=== PATIENT | male | born 1970 | race Caucasian/White ===

== ENCOUNTER 2016-09-04 17:05 | Emergency (ER) | payer OTHER ==
[~2016-09-04] VITALS: Ht 172.7 cm; Wt 81.6 kg
[2016-09-04] MEDS ORDERED: BRINTELLIX20 M1 PO (18:00)
[2016-09-04] MEDS ORDERED: LOVAZA1 G1 PO (18:00)
[2016-09-04] MEDS ORDERED: MULTI-DAY VITA1 EACH PO (18:01)
[2016-09-04] MEDS ORDERED: MECLIZINE HCL25 MG PO (18:02)
[2016-09-04] MEDS ORDERED: AUGMENTIN 875-1 EACH PO (18:02)
--- NOTE | 2016-09-04 18:03 | ED EAR COMPLAINT ---
History of Present Illness General Chief Complaint: Ear Complaints Stated Complaint: LOST HEARING IN R EAR 48HRS AGO PER PT Source: patient Exam Limitations: no limitations Vital Signs & Intake/Output Vital Signs & Intake/Output Vital Signs Date Time Temp Pulse Resp B/P Pulse O2 O2 Flow FiO2 Ox Delivery Rate 09/04 1731 97.9 80 18 129/84 98 Room Air ED Intake and Output 09/05 0000 09/04 1200 Intake Total Output Total Balance Patient 180 lb Weight Allergies Coded Allergies: No Known Allergies (09/04/16) Reconcile Medications Amoxicillin/Potassium Clav (Augmentin 875-125 Tablet) 875 MG-125 MG TABLET 1 TAB PO BID OTITIS MEDIA Meclizine HCl 25 MG TABLET 1 TAB PO TIDPRN OTITIS MEDIA/HEARING LOSS Multivitamin (Multi-Day Vitamins) 1 EACH TABLET 1 TAB PO DAILY SUPPLEMENT ( Reported) [place]-3 Acid Ethyl Esters (Lovaza) 1 GRAM CAPSULE 1 CAP PO BID CHOLESTEROL ( Reported) Vortioxetine Hydrobromide (Brintellix) 20 MG TABLET 1 TAB PO DAILY MENTAL HEALTH (Reported) Triage Note: PT TO TRIAGE WITH C/O HEARING LOSS TO R EAR MONDAY NIGHT. PT WAS DIAGNOSED WITH LYME DISEASE A MONTH AGO AND WAS ON ANTIBIOTICS FOR IT. VSS. NO OTHER COMPLAINTS. Triage Nurses Notes Reviewed? yes Onset: Abrupt Duration: day(s):, constant, continues in ED Timing: recent history Injury Environment: home No Modifying Factors: none HPI: 45-year-old male comes into emergency room for further evaluation of right ear pain and decreased hearing has been going on for the past couple days. Sharp pain. Patient reports some mild ringing in the ear. Denies any fever chills or any congestion. Patient reports that he was sick with an upper respiratory infection over the past couple weeks for the symptoms have resolved. Denies any other associated symptoms at this time. (CHRISTEN MASTERSON) Past History Travel History Traveled to [place] past 21 day No Medical History Any Pertinent Medical History? none Surgical History Surgical History: non-contributory Psychosocial History What is your primary language French Tobacco Use: Never used Illicit Drug Use: denies illicit drug use Family History Hx Contributory? No (CHRISTEN MASTERSON) Review of Systems Review of Systems Constitutional: Reports: no symptoms. EENTM: Reports: see HPI. Respiratory: Reports: no symptoms. Cardiovascular: Reports: no symptoms. GI: Reports: no symptoms. Genitourinary: Reports: no symptoms. Musculoskeletal: Reports: no symptoms. Skin: Reports: no symptoms. Neurological/Psychological: Reports: no symptoms. Hematologic/Endocrine: Reports: no symptoms. Immunologic/Allergic: Reports: no symptoms. All Other Systems: Reviewed and Negative (CHRISTEN MASTERSON) Physical Exam Physical Exam General Appearance: well developed/nourished, mild distress Head: atraumatic Eyes: Bilateral: normal appearance. Ears: Right: Tympanic dull (SEROUS OTITIS). Bilateral: canal normal. Nose: normal inspection Mouth/Throat: normal mouth inspection, pharynx normal, dental tenderness Neck: normal inspection Cardiovascular/Respiratory: no respiratory distress Back: normal inspection Neurologic/Psych: awake, alert, oriented x 3, normal mood/affect Skin: intact, normal color, warm/dry (CHRISTEN MASTERSON) Progress Differential Diagnoses I considered the following diagnoses in my evaluation of the patient: Otitis media, otitis externa, mastoiditis, tinnitus, Mnire's disease, Plan of Care: SEE BELOW Initial ED EKG: none (CHRISTEN MASTERSON) Departure Departure Disposition: HOME OR SELF CARE Condition: Stable Clinical Impression Primary Impression: Serous otitis media Referrals: UNKNOWN (PCP/Family) Departure Forms: Customer Survey General Discharge Information Prescriptions: Current Visit Scripts Amoxicillin/Potassium Clav (Augmentin 875-125 Tablet) 1 TAB PO BID #20 TAB Meclizine HCl 1 TAB PO TIDPRN #30 TAB Comments Take Augmentin and meclizine as prescribed. Follow-up with ear nose and throat doctor if not better in 3-5 days. Return if any other concerns worsening symptoms. Please go over all results of today's visit with your primary care doctor. Contact your primary care doctor to let them know you were here in the emergency room. There may be nonspecific findings which may not be related to your visit today here in the emergency room but may require further evaluation and chronic monitoring by your primary care doctor. If you had a laceration today the chance of foreign body always remains. You should follow-up with your primary care doctor for recheck in 3-5 days for a wound check. If you had an x-ray done there is a chance that a fracture could have been missed on initial read and you should follow-up with your primary care doctor for repeat x-rays if symptoms persist. If your blood pressure was elevated here in the emergency room please have rechecked by her primary care doctor within the next 48 hours by your primary care doctor. If you were prescribed a narcotic here in the emergency room or any type of controlled substances you're not allowed to drive while taking this medication or operate any type of heavy machinery. Narcotics can make you feel lightheaded dizziness nausea and can cause constipation. You may need to grain picker a stool softener. Thank you for choosing [facility] emergency room. Please return to the emergency room immediately if you have any other concerns worsening of symptoms. (DINA JOY,CHRISTEN) PA/HEAD OF DESIGN Co-Sign Statement Statement: ED Attending supervision documentation- [] I saw and evaluated the patient. I have also reviewed all the pertinent lab results and diagnostic results. I agree with the findings and the plan of care as documented in the PA's/HEAD OF DESIGN's documentation. [X] I have reviewed the ED Record and agree with the PA's/HEAD OF DESIGN's documentation. [] Additions or exceptions (if any) to the PAs/HEAD OF DESIGN's note and plan are summarized below: [] (AUGUSTINA REED,XIOMARA)
== END 2016-09-04 18:11 ==
LOC: ERH 17:05
DX: H65.91 Unspecified nonsuppurative otitis media, right ear (principal)